=== PATIENT | male | born 1970 | race American Indian/Alaskan Native ===

== ENCOUNTER 2017-10-07 19:41 | Emergency (ER) | payer MEDICAID ==
[2017-10-07] MEDS ORDERED: NACL 0.9% 1000 ML 1,000 ML IV ONE ×2 (20:08→21:29)
[2017-10-07 20:49] LABS: Hematocrit 42.6 % (35.5-45.6); Hemoglobin 14.3 gm/dl (11.8-15.2); Mean Corpuscular HGB Conc 34 % (32-34); Mean Corpuscular Hemoglobin 30 pg (28-32); Mean Corpuscular Volume 89 fl (84-94); Platelet Count 167 K/mm3 (140-440); Red Blood Count 4.78 M/mm3 (3.65-5.03); Red Cell Distribution Width 14.5 % (13.2-15.2)
[2017-10-07 21:04] LABS: Alanine Aminotransferase 15 units/L (7-56); Albumin 4.5 g/dL (3.9-5); BUN/Creatinine Ratio 14; Blood Urea Nitrogen 14 mg/dL (9-20); Calcium 9.2 mg/dL (8.4-10.2); Hemolysis Index 5; Lipase 29 units/L (13-60)
[2017-10-07] MEDS ORDERED: ZOFRAN IV ONE (21:28)
[2017-10-07] MEDS ORDERED: BENADRYL IV ONE (21:28)
[2017-10-07] MEDS ORDERED: SUBLIMAZE IV ONE (21:28)
[2017-10-07 21:36] LABS: Basophils % (Manual) 0 % (0.0-1.8); Total Cells Counted 100
[2017-10-07 21:37] LABS: Platelet Estimate Consistent w Auto; RBC Morphology Normal
--- NOTE | 2017-10-07 22:03 | Emergency Department Report ---
HPI - General Chief Complaint: Abdominal Pain Time Seen by Provider: 10/07/17 20:32 - HPI HPI: The patient is a 46-year-old male who presents for evaluation of abdominal pain. The patient reports upper abdominal pain for the past one day, cramping in quality, currently mild in severity, worsened with retching. He has also is nausea and nonbilious, nonbloody emesis. The patient denies fever, chills, night sweats, diarrhea, blood in the stool, dark tarry stool, dysuria, hematuria , flank pain, genital discharge, inability to pass flatus. ED Past Medical Hx - Past Medical History Additional medical history: hepatitis C-dx 03/2017 no treatment - Surgical History Hx Appendectomy: Yes - Social History Smoking Status: Current Every Day Smoker Substance Use Type: None - Medications Home Medications: Home Medications Medication Instructions Recorded Confirmed Last Taken Type Omeprazole Magnesium [PriLOSEC Otc] 20 mg PO QDAY #14 tablet. 10/07/17 Unknown Rx Ondansetron [Zofran TAB] 4 mg PO Q8HR PRN #20 tablet 10/07/17 Unknown Rx traMADol [Ultram 50 MG tab] 50 mg PO Q6HR PRN #20 tablet 10/07/17 Unknown Rx ED Review of Systems ROS: Stated complaint: ABDOMINAL PAIN Other details as noted in HPI Constitutional: denies: fever ENT: denies: throat or neck pain Respiratory: denies: cough, shortness of breath Cardiovascular: denies: chest pain Endocrine: denies unexplained weight loss or gain Gastrointestinal: reports abdominal pain, nausea Genitourinary: denies: dysuria Musculoskeletal: denies: leg swelling Skin: denies: rash Neurological: denies: headache Hematological/Lymphatic: denies: easy bleeding or easy bruising Psych: denies sadness or hopelessness Physical Exam - Physical Exam Vital Signs: Vital Signs 10/07/17 10/07/17 10/07/17 19:40 19:54 20:48 Temperature 98.7 F 98.7 F Pulse Rate 73 69 60 Respiratory 18 18 19 Rate Blood Pressure 100/62 100/62 97/73 O2 Sat by Pulse 96 98 97 Oximetry 10/07/17 21:00 Temperature Pulse Rate 59 L Respiratory 22 Rate Blood Pressure 95/67 O2 Sat by Pulse Oximetry Physical Exam: General: well-nourished, well-developed, no acute distress Head: Normocephalic, atraumatic Eyes: normal sclera ENT: Mucous membranes are pale and dry Neck: trachea midline, neck supple, No neck stiffness, no cervical adenopathy Respiratory: Breath sounds equal bilaterally, no wheezing, rales, or rhonchi Cardio: S1 and S2 present, no murmurs, rubs, gallops, capillary refill is delayed Abdomen: Normoactive bowel sounds, soft abdomen, epigastric and right upper quadrant tenderness to palpation present, no rigidity, no guarding or rebound tenderness Chest WALL/Back: No tenderness to palpation of the chest wall, no CVA tenderness with percussion Musc: No pitting edema Skin: No rash Neuro: no facial drooping, normal speech Psych: Normal affect ED Course Vital Signs 10/07/17 10/07/17 10/07/17 19:40 19:54 20:48 Temperature 98.7 F 98.7 F Pulse Rate 73 69 60 Respiratory 18 18 19 Rate Blood Pressure 100/62 100/62 97/73 O2 Sat by Pulse 96 98 97 Oximetry 10/07/17 21:00 Temperature Pulse Rate 59 L Respiratory 22 Rate Blood Pressure 95/67 O2 Sat by Pulse Oximetry ED Medical Decision Making - Lab Data Result diagrams: 10/07/17 20:19 10/07/17 20:19 - Medical Decision Making The patient was seen and examined by myself. The patient is placed on a monitoring manager and continuous pulse ox. On initial evaluation, the patient was found to be in no distress. Evaluation orders are placed. IV access is established and the patient is given 1 L normal saline fluid bolus and Zofran for nausea, and IV analgesic for pain. Lab results were non-concerning including WBC, hemoglobin, hematocrit, electrolytes, renal function, LFTs, lipase, and urinalysis. The patient was reevaluated and reported that their symptoms were markedly improved. The patient is stable for discharge with outpatient follow-up. The patient is given follow-up and return instructions. The patient expressed understanding and agreed with the plan. The patient is discharged in stable condition. Critical care attestation.: If time is entered above; I have spent that time in minutes in the direct care of this critically ill patient, excluding procedure time. ED Disposition Clinical Impression: Abdominal pain, acute, epigastric, Dehydration, Nausea and vomiting in adult Disposition: DC-01 TO HOME OR SELFCARE Is pt being admited?: No Does the pt Need Aspirin: No Condition: Stable Instructions: Viral Hepatitis C (ED), Acute Abdominal Pain (ED) Prescriptions: Omeprazole Magnesium [PriLOSEC Otc] 20 mg PO QDAY #14 tablet. Ondansetron [Zofran TAB] 4 mg PO Q8HR PRN #20 tablet PRN Reason: Nausea traMADol [Ultram 50 MG tab] 50 mg PO Q6HR PRN #20 tablet PRN Reason: Pain Referrals: PRIMARY CARE, [Primary Care Provider] - 3-5 Days [facility] [Provider Group] - 3-5 Days Time of Disposition: 22:02
[2017-10-07 22:29] LABS: Bilirubin,Urine NEG (Negative); Blood,Urine NEG (Negative); Color,Urine Yellow (Yellow); Mucus,Urine 1+ /HPF; Protein,Urine <15 mg/dL mg/dL (Negative)
[2017-10-08 00:51] VITALS: BP 107/79
== END 2017-10-08 00:51 | disposition home or self-care (01) ==
LOC: ED 19:41
DX: E86.0 Dehydration (principal); R11.2 Nausea with vomiting, unspecified; R10.13 Epigastric pain; F17.200 Nicotine dependence, unspecified, uncomplicated
CPT/HCPCS: 36415; 80053; 81001; 83690; 85007; 85025; 96361; 96374; 96375; 99284; J1200; J2405; J3010; J7030